=== PATIENT | female | born 1970 | race Caucasian/White ===

== ENCOUNTER 2022-06-12 10:50 | Outpatient (REF) | payer BC, SELFPAY ==
--- NOTE | ~2022-06-12 | MR_ITS ---
EXAMINATION: MR BRAIN WITHOUT AND WITH CONTRAST CLINICAL INFORMATION: Encephalopathy. COMPARISON: None available. TECHNIQUE: Multiplanar, multisequence imaging of the brain was performed before and after the intravenous administration of 7.5 mL of Gadavist. FINDINGS: There is no acute infarction, mass, hemorrhage, or extra-axial collection. No abnormal or unexpected intracranial enhancement is seen. The ventricles, sulci, and basilar cisterns are normal in size and configuration. A few minimal nonspecific foci of T2/FLAIR hyperintensity are seen within the cerebral white matter. The flow voids of the major intracranial arteries appear intact. The bones and extracranial soft tissues are within normal limits. MR/MR head/brain wo/w con IMPRESSION: No mass lesion, acute infarction, or abnormal intracranial enhancement.
== END 2022-06-12 10:51 | disposition home or self-care (01) ==
LOC: HO.MRI 10:50
PROVIDERS: Visit Provider Psychiatry & Neurology Neurology
DX: G93.40 Encephalopathy, unspecified (principal)
CPT/HCPCS: 70553; A9585

== ENCOUNTER 2022-07-05 07:16 | Outpatient (REF) | payer BC, SELFPAY ==
[2022-07-05 11:39] LABS: MANUAL DIFF FLAG NO
[2022-07-05 11:55] LABS: Basophils Percent Auto 0.6 % (0-2); Eosinophils Absolute Auto 0.1 X10*3/uL (0.0-0.4); Hematocrit 40.8 % (37.0-47.0); Hemoglobin 13.6 g/dl (12.0-16.0); Imm Gran Abs Auto 0.02 X10*3/uL (0.00-0.03); Imm Gran Pct Auto 0.3 % (0.0-0.4); Lymphocytes Absolute Auto 2.5 X10*3/uL (1.2-4.9); Lymphocytes Percent Auto 38.3 % (20-40); Mean Corpuscular HGB Conc 33.3 g/dl (31.0-35.0); Mean Corpuscular Hemoglobin 31.6 pg (27.0-33.0); Mean Corpuscular Volume 94.9 fL (80.0-98.0); Mean Platelet Volume 10.7 fL (9.4-12.3); Monocytes Absolute Auto 0.7 X10*3/uL (0.1-1.2); Monocytes Percent Auto 10.1 % (2-11); Neutrophils Absolute Auto 3.2 x10*3/uL (2.0-8.3); Neutrophils Percent Auto 48.7 % (45-73); Platelet Count 283 X10*3/uL (160-400); Red Cell Distribution Width 12.2 % (11.0-16.0); White Blood Count 6.6 X10*3/uL (4.8-10.8)
[2022-07-05 12:25] LABS: Anion Gap 13 (12-20); Blood Urea Nitrogen 15 mg/dL (9-16); Calcium 9.6 mg/dL (8.4-10.2); Carbon Dioxide 27 mmol/L (22-29); Chloride 104 mmol/L (96-108); Estimated Glomerular Filt Rate > 60; Glucose Fasting 103 mg/dL (60-99); Potassium 4.5 mmol/L (3.3-5.1); Sodium 139 mmol/L (135-145)
[2022-07-05 12:37] LABS: Folate 10.4 ng/mL (> or = 4.0); Vitamin B12 534 pg/mL (200-900)
[2022-07-05 12:39] LABS: Erythrocyte Sedimentation Rate 13 MM/HR (0-20)
[2022-07-05 12:56] LABS: HIV AB/AG Nonreactive (Nonreactive); HIV Num 1 0.05 S/CO (0.00-0.99)
[2022-07-05 12:57] LABS: Syphilis Screen Nonreactive (Nonreactive)
[2022-07-06 13:03] LABS: Lyme Abs Screen <0.90 index
[2022-07-09 14:04] LABS: Anti Nuclear Antibody Screen NEGATIVE (NEGATIVE)
[2022-07-11 17:55] LABS: IgA 325 mg/dL (47-310); IgG 933 mg/dL (600-1640); IgM 155 mg/dL (50-300)
== END 2022-07-05 07:17 | disposition home or self-care (01) ==
LOC: HO.WFDLDS 07:16
PROVIDERS: Visit Provider Psychiatry & Neurology Neurology
DX: Z11.4 Encounter for screening for human immunodeficiency virus [HIV] (principal); G93.40 Encephalopathy, unspecified
CPT/HCPCS: 36415; 80048; 82607; 82746; 82784; 85025; 85652; 86038; 86039; 86334; 86617; 86618; 86780; 87389

== ENCOUNTER 2025-02-10 11:46 | Outpatient (AMB) | payer BC, SELFPAY ==
--- NOTE | 2025-02-10 12:01 | MHC.OFFVIS ---
Intake Visit Reasons: 6m MCI Allergies amoxicillin Allergy (Unknown, Verified 02/02/25 11:13) Unknown HPI Comments Details: 54 yo woman with depression and mild cognitive impairment. She was evaluated at [facility] in 2022 and had a negative CSF test for Alzheimer disesae. She was told that her risk of Alzheimer was 7%. She is presenting with memory impairment and tremors. Her forgetfulness has increased, such as missing a previously scheduled appointment, raising concerns over potential causes. The increasing tremors began following the initiation of Contrave for weight loss. The connection between the medication and her symptoms remains uncertain, but she expresses willingness to try adjustment. She has severe sleep apnea diagnosed six months ago, indicated by night-time hypoxemia discovered in a sleep study, leading to CPAP treatment. She acknowledges potential connections between sleep apnea and cognition. Lastly, knee pain from arthritis restricts walking, impacting her efforts to manage symptoms through physical activity. 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 - Respiratory: Reports use of CPAP for sleep apnea; history of hypoxemia during sleep. - Musculoskeletal: Reports knee pain, particularly with increased walking. - General: Denies any major changes other than those discussed. Physical Exam Neuro Other: Mental Status: Alert and oriented to person, place, and time. Normal attention. Normal spontaneous speech, fluency, and comprehension. No obvious issues with mood and memory. Affect is appropriate. Cranial Nerves: CN II: Visual mitchell full to confrontation, visual acuity intact. CN III, IV, : Pupils equal, round, reactive to light and accommodation. Extraocular movements are normal. CN V: Facial sensation is normal. CN VII: Facial movements symmetrical. CN VIII: Hearing intact to bedside conversation is normal. CN IX, X: Palate elevates symmetrically. CN XI: Shoulder shrug and head turn symmetrical. CN XII: Tongue midline without atrophy or fasciculations. Motor: Bulk and tone normal in all extremities. No significant muscle weakness in arms and legs. No drift. Coordination: Bsztws-hi-lvto and bkad-ys-pyli testing normal. No dysmetria. Gait and Station: No obvious gait abnormality. No ataxia or instability. Extrapyramidal: Full facial expressions and blinking. No rigidity. Movements are appropriate with no tremor or abnormality. Speech: Normal; no dysarthria or tremor. Assessment & Plan Assessment & Plan (1) MCI (mild cognitive impairment): Comment: LP at [facility] in Feb 2023: Glu 72, Alzheimer test negative MRI brain WWO at [facility] [place] in May 2022: mild hyperintensities around 4 vent, ?alcohol induced but there is no h/o it. Mild b/l parietal cortical atrophy. Code(s): G31.84 - Mild cognitive impairment of uncertain or unknown etiology Category: Medical Plan Impression: a: MCI b: ROBERTA on CPAP c: Obesity that she is trying to treat with meds Rec: a: Walk daily b: Use CPAP machine regularly c: Bring sleep study report at next visit Coding Level of Care Code Est Pt Level 4 (51906) Diagnoses MCI (mild cognitive impairment) G31.84
--- OUTSIDE RECORDS SUMMARY | 2025-02-10 12:44 | XMS_ITS | Encounter Summary ---
Author Organization [facility] Address [address] [employer] [address] Phone Care Team Providers Care Supervisor Labor Gang Name Role Phone Princess Cooper MD Primary Care Provider + Saba Norton NP Primary Care Provider [phone] [phone] Saba Norton GAS WELDER APPRENTICE Primary Care Provider [phone] -[phone] Marybel Torres MD Primary Care Provide r Encounter Details Date Type Department Care Team (Late st Contact Info) Description 09/15/2020 Procedure Pass [facility] Cardiology Referral Images [address] [place] [address] Social History Tobacco Use Types Packs/Day Years Used Date Smoking Tobacco: Never Assessed Comments Unknown Sex and Gender Information Value Date Recorded Sex Assigned at Female 08/27/2020 11:03 AM EST Legal Sex Female 10:48 AM EST Gender Identity Female 08/27/2020 11:03 AM EST Sexual Orientation Straight 08/27/2020 11 :03 AM EST documented as of this encounter Plan of Treatment Not on file documented as of this encounter Visit Diagnoses Not on filedocumented in this encounter Care Teams Supervisor Labor Gang Relationship Specialty Start Date End Date Princess Cooper MD 24 [facility] [place] [address] PCP - General Internal Medicine 08/27/20 09/04/22 Saba Norton, JESSY [address] [place] [address] PCP - General Nurse Practitioner 09/05/22 03/05/23 Saba Norton NP [address] [place] [address] PCP - General Nurse Practitioner 03/06/23 05/20/23 Marybel Torres MD 24 [place] [address] PCP - General Internal Medicine 05/21/23 documented as of this encounter Additional Source Comments The information contained in this document represents components of the legal health record. It is not the complete legal health record.[facility]
--- OUTSIDE RECORDS SUMMARY | 2025-02-10 12:44 | XMS_ITS | Clinical Summary ---
Author Organization [facility] Address [address] [employer] [facility] [address] [place] [address] Phone Care Team Providers Care Livestock Haulier Name Role Phone Marybel Torres MD Primary Care Provide r Allergies Active Allergy Reactions Criticality Noted Date Comments Other 11/25/2020 PFO--filter IVs Medications losartan (COZAAR) 50 MG tablet Take 25 mg by mouth daily. Active buPROPion (WELLBUTRIN XL) 150 MG ER 24 hr tablet Take 150 mg by mouth every morning. Active lamoTRIgine (LAMICTAL) 100 MG tablet Take 100 mg by mouth 2 (two) times a day. Active levothyroxine (SYNTHROID, LEVOTHROID) 50 MCG tablet Take 50 mcg by mouth every morning. Active vortioxetine (TRINTELLIX) 10 mg Tab Take 20 mg by mouth daily. Active omeprazole (PRILOSEC) 20 MG capsule Take 20 mg by mouth daily. Active aspirin 81 mg chewable tablet Take 81 mg by mouth daily. Active amLODIPine (NORVASC) 5 MG tablet Take 1 tablet (5 mg total) by mouth daily. 90 tablet 3 09/21/2022 Active rosuvastatin (CRESTOR) 5 MG tablet Take 1 tablet (5 mg total) by mouth daily. 90 tablet 3 08/07/2024 Active Active Problems Problem Noted Date Diagnosed Date PFO with atrial septal aneurysm 07/18/2021 Assessment & Plan (08/17/2021 11:18 AM EST): Hx of interatrial aneurysm with likely small PFO. Initial concern for cardioembolic source of omental infarct, however, on further questioning does not sound cardiac in etiology. TTE with bubble study today did not show definitive evidence of PFO. Possible one or two bubbles in LV with strong valsalva vs chordae structure. No bubbles in LA. No records received from OSH for her ED admission. Since we last spoke, she reports feeling fleeting episodes of trouble getting her words out and gait imbalance but no falls. No weakness, loss of vision or speech, LH or near syncope. Rec referral to Neuro for further FU, offered referral at [facility] but she lives in [facility] so prefers to see someone locally. Will discuss with her PCP. Her sx are fleeting and do not sound entirely c/w TIA but could consider KEVIN with bubble to more accurately discern bubbles from normal chordae. Will again reach out to OSH for records and discuss with Dr. Singh once records are received. OSH records Neuro eval in [facility] Assessment & Plan (07/18/2021 2:54 PM EST): Hx of interatrial aneurysm with likely small PFO. Initial concern for cardioembolic source of omental infarct, however, on further questioning does not sound cardiac in etiology. Repeat TTE with bubble study today did not show definitive evidence of PFO. Possible one or two bubbles in LV with strong valsalva vs chordae structure. No bubbles in LA. Will obtain records from OSH for her ED admission. In the absence of neurologic sx or concern for cardioembolic source, unlikely to need further investigation. If there was concern for embolic infarction, could consider KEVIN with bubble to more accurately discern bubbles from normal chordae. Will review with Dr. Singh once records are received. Hypertension 11/25/2020 Assessment & Plan (08/17/2021 11:18 AM EST): Blood pressure is well controlled on current regimen. No changes today. Cont amlodipine 5 mg and losartan 50 mg. Assessment & Plan (07/18/2021 2:51 PM EST): Blood pressure is well controlled on current regimen. No changes today. Cont amlodipine 5 mg and losartan 50 mg. Social History Tobacco Use Types Packs/Day Years Used Date Smoking Tobacco: Never Smokeless Tobacco: Never Education Answer Date Recorded Are you interested in more education? Not on tasia e 10/13/2022 Are you concerned about learning? Not on file 10/13/2022 No 10/13/2022 No 10/13/2022 Digital Access Answer Date Recorded No 11/11/2022 No 11/11/2022 Reliable internet access at home? Not on file 11/11/2022 Device with a working camera? Not on file Comments Unknown Sex and Gender Information Value Date Recorded Sex Assigned at Female 08/27/2020 11:03 AM EST Legal Sex Female 10:48 AM EST Gender Identity Female 08/27/2020 11:03 AM EST Sexual Orientation Straight 08/27/2020 11 :03 AM EST Last Filed Vital Signs Vital Sign Reading Time Taken Comments Blood Pressure 132/84 03/16/2023 9:36 AM EDT Pulse 89 03/16/2023 9:36 AM EDT Temperature 37.1 C (98.7 F) 03/16/2023 9:36 AM EDT Respiratory Rate - - Oxygen Saturation 98% 03/16/2023 9:36 AM EDT Inhaled Oxygen Concentration - - Weight 76 kg (167 lb 8.8 oz) 03/16/2023 9:36 AM EDT Height 153.4 cm (5' 0.39 ) 03/16/2023 9:36 AM ED T Body Mass Index 32.3 03/16/2023 9:36 AM EDT Plan of Treatment Health Maintenance Due Date Last Done Comments DEPRESSION SCREENING 1981 HEPATITIS C SCREENING 11/22/1987 HIV ONE-TIME SCREENING (18-65 YEARS) 11/22/1987 PAP SMEAR 1990 MAMMOGRAM 2009 COLOGUARD 2014 COLONOSCOPY 2014 COLORECTAL CANCER SCREENING 2014 FIT TEST 2014 FOBT 2014 SIGMOIDOSCOPY 2014 VIRTUAL COLONOSCOPY 2014 PNEUMOCOCCAL VACCINES (50+ years) (1 of 1 - PCV) 11/22/2019 ZOSTER VACCINES (1 of 2) 11/22/2019 BLOOD PRESSURE 04/04/2023 10/03/2022 COVID-19 VACCINE ( season) 2024 05/06/2022, 05/07/2021, 08/07/2020, Additional history exists CREATININE LEVEL 04/11/2024 04/11/2023 POTASSIUM LEVEL 04/11/2024 04/11/2023 TSH LEVEL 04/11/2024 04/11/2023 LIPID PANEL 03/25/2026 03/25/2021 SCREENING FOR DIABETES 04/11/2026 04/11/2023 Adult Td,Tdap Booster 11/13/2033 11/14/2023 SMOKING STATUS SCREENING (Once After 26 Yrs) Completed 03/16/2023 HEPATITIS A VACCINES Aged Out No long er eligible based on patient's age to complete this topic HIB VACCINES Aged Out No longer eligi ble based on patient's age to complete this topic MENINGOCOCCAL VACCINES (ACWY) Aged Out No longer eligible based on patient's age to complete this topic MENINGOCOCCAL VACCINES (B) Aged Out N o longer eligible based on patient's age to complete this topic Medical Devices Not on file Procedures Procedure Name Priority Date/Time Associated Diagnosis Comments TSH WITH REFLEX Routine 04/11/2023 10:35 AM EDT Cognitive change BASIC METABOLIC PANEL Routine 04/11/2023 10:35 AM EDT Cognitive change LIPID PANEL Routine 03/25/2021 12:49 PM EDT Other hyperlipidemia from Last 3 Months or Most Recently Relevant to Health Maintenance Results * TSH with reflex (04/11/2023 10:35 AM EDT) Pathologist [facility] SCREENING PANEL: TSH 1.80 0.40 - 5.00 uIU/mL [facility] 04/11/2023 10:3 5 AM EDT 04/11/2023 11:23 AM EDT us Celestino Crow MD, PhD LAB BLOOD ORDERABLES Final Result [facility] [address] [place] [address] * Basic metabolic panel (04/11/2023 10:35 AM EDT) Pathologist [facility] SODIUM 141 135 - 145 mmol/L [facility] POTASSIUM 4.6 3.4 - 5.0 mmol/L [facility] CHLORIDE 104 98 - 108 mmol/L [facility] CO2 27 23 - 32 mmol/L [facility] BUN 14 8 - 25 mg/dL [facility] CREATININE 0.81 0.60 - 1.50 mg/dL [facility] GLUCOSE 100 70 - 110 mg/dL [facility] CALCIUM 9.6 8.5 - 10.5 mg/dL [facility] EGFR 87 >59 mL/min/1.7 3m2 [facility] Comment:Estimated glomerular filtration rate calculated using the CKD-EPI refit equation. ANION GAP 10 3 - 17 mmol/L [facility] 04/11/2023 10:3 5 AM EDT 04/11/2023 11:23 AM EDT Celestino Crow MD, PhD LAB BLOOD ORDERABLES Final Result Performing Organization Address City/State/[facility] Co de Phone Number [address] [address] * (ABNORMAL) Lipid panel (03/25/2021 12:49 PM EDT) HDL 65 mg/dL [facility] Comment: Interpretation <40 mg/dL: Low HDL cholesterol (major risk factor for CHD) Greater than or equal to 60 mg/dL: High HDL cholesterol ( negative risk factor for CHD) HDL - cholesterol is affected by a number of factors, e.g. smoking, excerise, hormones, sex and age. CHOLESTEROL 246(H) 0 - 240 mg/dL [facility] TRIGLYCERIDES 52 30 - 160 mg/dL [facility] LDL 171(H) 50 - 129 mg/dL [facility] Comment: LDL levels in terms of risk for coronary heart disease: <100 mg/dL: Optimal 100-129 mg/dL: Near or above optimal 130-159 mg/dL: Borderline high 160-189 mg/dL: High >190 mg/dL: Very High CARDIAC RISK RATIO 3.8 3.3 - 4.4 C [facility] Blood 03/25/2021 12:4 9 PM EDT 03/25/2021 12:52 PM EDT us iRta Keane MD LAB BLOOD ORDERABLES Final R esult [address] [address] from Last 3 Months or Most Recently Relevant to Health Maintenance Insurance [facility] [place] [address] [address] [place] [address] [facility] Care Teams Livestock Haulier Relationship Specialty Start Date End Date Marybel Torres MD 24 [place] [address] PCP - General Internal Medicine 05/21/23 Additional Source Comments The information contained in this document represents components of the legal health record. It is not the complete legal health record.[facility]
--- OUTSIDE RECORDS SUMMARY | 2025-02-10 12:44 | XMS_ITS | Encounter Summary ---
Author Organization [facility] Address [address] [place] [address] [place] [address] Phone Care Team Providers Care Assistant Shift Supervisor Name Role Phone Princess Cooper MD Primary Care Provider + Saba Norton CLOTH BEAMER Primary Care Provider [phone] [phone] Saba Norton CLOTH BEAMER Primary Care Provider [phone] [phone] Marybel Torres MD Primary Care Provide r Encounter Details Date Type Department Care Team (Late st Contact Info) Description 01/10/[address], [facility] Imaging - [address], [facility] [address] [id number] Social History Tobacco Use Types Packs/Day Years [...] on filedocumented in this encounter Care Teams Assistant Shift Supervisor Relationship Specialty Start Date End Date Princess Cooper MD 24 [facility] & [place] [address] PCP - General Internal Medicine 08/27/20 09/04/22 Saba Norton NP [address] [place] [address] PCP - General Nurse Practitioner 09/05/22 03/05/23 Saba Norton NP [address] [place] [address] PCP - General Nurse Practitioner 03/06/23 05/20/23 Marybel Torres MD 24 [place] [address] PCP - General Internal Medicine 05/21/23 documented as of this encounter Additional Source Comments The information contained in this document represents components of the legal health record. It is not the complete legal health record.[facility]
--- OUTSIDE RECORDS SUMMARY | 2025-02-10 12:44 | XMS_ITS | Clinical Summary ---
Author Organization [address] [place] [address] Address [address] [place] [address] Phone Care Team Providers Care Reference Investigator Name Role Phone Unavailable Primary Care Provider Unavailabl e Encounters Date Type Department Care Team Description 01/26/2025 Telephone Pulmonolgy - [place] [address] [phone] Luis Elias MD [facility] [address] [phone] Luis Elias MD 11/[facility] [address] [phone] Luis Elias MD [facility] [address] [phone] Luis Elias MD from Last 3 Months Social History Tobacco Use Types Packs/Day Years Used Date Smoking Tobacco: Never Assessed Comments Unknown Sex and Gender Information Value Date Recorded Sex Assigned at Not on file Legal Sex Female 10:15 AM EST Gender Identity Not on file Sexual Orientation Not on file Plan of Treatment Upcoming Encounters Date Type Department Care Team ([facility] st Contact Info) Description 03/17/2025 10:00 AM EDT Office Visit Pulmonolgy [facility] [address] [facility] [address] [place] [address] Luis Elias MD [address] [place] [phone] Health Maintenance Due Date Last Done Comments Breast Cancer Screening 1969 DTaP,Tdap,and Td Vaccines (1 - Tdap) 1988 Hepatitis B Vaccines (1 of 3 - 19+ 3-dose series) 1988 Cervical Cancer Screening: P ap Smear 1990 Pneumococcal Vaccine: 50+ Ye ars (1 of 1 - PCV) 11/22/2019 Zoster Vaccines (1 of 2) 11/22/2019 Colorectal Cancer Screening: Colonoscopy 05/21/2022 HIV Screening 05/21/2022 Hepatitis C Screening 05/21/2022 Social Influencers of Health Screening 05/21/2022 COVID-19 Vaccine (1 - 2023-2 5 season) 2024 Depression Screening 06/18/2024 Influenza Vaccine (#1) 2025 HIB Vaccines Aged Out No longer eligi ble based on patient's age to complete this topic HPV Vaccines Aged Out No longer eligi ble based on patient's age to complete this topic Hepatitis A Vaccines Aged Out No long er eligible based on patient's age to complete this topic IPV Vaccines Aged Out No longer eligi ble based on patient's age to complete this topic MMR Vaccines Aged Out No longer eligi ble based on patient's age to complete this topic Meningococcal ACWY Vaccine Aged Out N o longer eligible based on patient's age to complete this topic Meningococcal B Vaccine Aged Out No l onger eligible based on patient's age to complete this topic RSV Immunization Patients Un lobo 20 months Aged Out No longer eligible b ased on patient's age to complete this topic Varicella Vaccines Aged Out No longer eligible based on patient's age to complete this topic Insurance [facility]
--- OUTSIDE RECORDS SUMMARY | 2025-02-10 12:45 | XMS_ITS | Encounter Summary ---
Author Organization [facility] Address [facility] [employer] [facility] [address] [place] [address] Phone Care Team Providers Care Roundsman Name Role Phone Princess Cooper MD Primary Care Provider + Saba Norton NP Primary Care Provider [phone] [phone] Saba Norton CORPORATE STAFF ACCOUNTANT Primary Care Provider [phone] -[phone] Marybel Torres MD Primary Care Provide r Encounter Details Date Type Department Care Team (Late st Contact Info) Description 05/27/2021 Procedure Pass [facility] Cardiology [address] [facility], [address] [place] [id number] Social History Tobacco Use Types Packs/Day Years [...] on filedocumented in this encounter Care Teams Roundsman Relationship Specialty Start Date End Date Princess Cooper MD 24 [facility] [place] [address] PCP - General Internal Medicine 08/27/20 09/04/22 Saba Norton NP 24 [place] [address] PCP - General Nurse Practitioner 09/05/22 03/05/23 Saba Nortno NP [address] [place] [address] PCP - General Nurse Practitioner 03/06/23 05/20/23 Marybel Torres MD 24 [place] [address] PCP - General Internal Medicine 05/21/23 documented as of this encounter Additional Source Comments The information contained in this document represents components of the legal health record. It is not the complete legal health record.[facility]
--- OUTSIDE RECORDS SUMMARY | 2025-02-10 12:45 | XMS_ITS | Patient Health Record ---
Author Organization [facility] [address] Address [address] [place] [address] Care Team Providers Care Shank Rander Name Role Phone Marybel Torres MD Primary Care Provider ANOOP Yoder Unavailable [phone] Allergies Allergen (clinical drug ingredient) Drug/Non Drug Allergy documented on EMR Reaction Allergy Type Onset Date Status amoxicillin Amoxicillin Unknown Drug Allergy Act marguerite Reason For Referral Diagnosis 1 Abnormal weight loss (R63.4) Referred Organization [facility] [address] Referred Provider ANOOP MULLIGAN Referred Address [address] [facility] [address] ,[place], [place],[address], Referred Provider Specialty Weight Manag ement Referral Priority Routine Medications Medication SIG (Take, Route, Frequency, Duration) Notes Start Date End Date Status Contrave 8-90 MG Take 2 tablets Orall y twice daily; Duration: 30 days Active buPROPion HCl ER (SR) 100 MG Oral; Duration: 90 Days Not- Taking Rosuvastatin Calcium 5 MG Oral; Duration: 90 Days Active Omeprazole 20 MG TAKE 1 CAPSULE BY MO UTH DAILY TAKE ON AN ON AN EMPTY STOMACH AND WAIT 40 MINUTES BEFORE EATING OR DRINKING Oral; Duration: 90 Days Active Trintellix 20 MG TAKE 1 TABLET BY JESSICA TH EVERY MORNING Oral; Duration: 15 Days Active lamoTRIgine 100 MG TAKE 1 TABLET BY JESSICA TH TWICE DAILY Oral; Duration: 90 Days Active Synthroid 50 MCG TAKE 1 TABLET DAILY Oral; Duration: 90 Days Active Losartan Potassium 50 MG TAKE 1 TABLET D AILY Oral; Duration: 90 Days Active amLODIPine Besylate 5 MG TAKE 1 TABLET D AILY Oral; Duration: 90 Days Active Baby Aspirin Active Problems Problem Type SNOMED Code ICD Code Onset Dates Problem Status W/U Status Risk Notes Problem Recurrent major depression (22876564) Recurrent major depressive disorder, in remission (F33.40) Active confirmed Problem Hyperlipidaemia (27278982) Hyperlipidemia, unspecified hyperlipidemia type (E78.5) Active confirmed Problem Can's esophagus (283971219) Can's esophagus with dysplasia (K22.719) Active confirmed Problem Obese class II (699208815541741) BMI 35.0-35.9,adult (Z68.35) Active confirmed Problem Primary hypertension (39995446) Primary hypertension (I10) Active confirmed Vital Signs Heart Rate 81 /min 01/08/2025 Oximetry 99 % 01/08/2025 Blood pressure diastolic 84 mm Hg 01/08/2025 Height 59 in 01/08/2025 Blood pressure systolic 126 mm Hg 01/08/2025 Weight 174.6 lbs 01/08/2025 BMI 35.26 kg/m2 01/08/2025 Encounters Encounter Location Date Provider Diagnosis [facility] [address] [address] 06/19/2024 ANOOP ESE Obesity (BMI 30-39.9 ) E66.9 ; BMI 35.0-35.9,adult Z68.35 ; Hyperlipidemia, unspecified hyperlipidemia type E78.5 ; Primary hypertension I10 ; Recurrent major depressive disorder, in remission F33.40 ; Can's esophagus with dysplasia K22.719 and Nutritional counseling Z71.3 [facility] [address] [address] 07/25/2024 ANOOP ESE Obesity (BMI 30-39.9 ) E66.9 ; BMI 35.0-35.9,adult Z68.35 ; Hyperlipidemia, unspecified hyperlipidemia type E78.5 ; Primary hypertension I10 and Nutritional counseling Z71.3 [facility] [address] [address] 11/04/2024 ANOOP ESE Obesity (BMI 30-39.9 ) E66.9 ; BMI 34.0-34.9,adult Z68.34 ; Hyperlipidemia, unspecified hyperlipidemia type E78.5 ; Primary hypertension I10 and Nutritional counseling Z71.3 [facility] [address] [address] 12/09/2024 ANOOP ESE Obesity (BMI 30-39.9 ) E66.9 ; BMI 34.0-34.9,adult Z68.34 ; Hyperlipidemia, unspecified hyperlipidemia type E78.5 ; Primary hypertension I10 and Nutritional counseling Z71.3 [facility] [address] [address] 01/08/2025 ANOOP MULLIGAN Obesity (BMI 30-39.9 ) E66.9 ; BMI 35.0-35.9,adult Z68.35 ; Hyperlipidemia, unspecified hyperlipidemia type E78.5 ; Primary hypertension I10 and Nutritional counseling Z71.3 [facility] [address] [address] 06/19/2024 ANOOP BIANCHIHAM [facility] [address] [address] 07/25/2024 ANOOP VOLGA [facility] [address] [address] 10/01/2024 ANOOP BIANCHIHAM [facility] [address] [address] 11/04/2024 ANOOP BIANCHIHAM [facility] [address] [facility] [address] [address] 07/15/2024 ANOOP MULLIGAN [facility] [address] [address] 11/19/2024 ANOOP BIANCHIHAM Obesity (BMI 30-39.9 ) E66.9 Assessments Encounter Date Diagnosis (ICD Code) Assessment Notes Treatment Notes Treatment Clinical Notes Section Notes 06/19/2024 Obesity (BMI 30-39.9) (ICD-10 - E66.9) Heather is a 53-year-old female with a PMH of HTN, HLD, hypothyroidism, depression, Can's Esophagus, nightly oxygen requirement (2 L via nasal cannula) that presents for weight management consult. Patient was reassured and welcomed to the practice. Discussed [facility] holistic and medical approach to weight loss with emphasis on lifestyle modification. Patient is educated that a healthy lifestyle aids in combating obesity as well as reducing the risk of developing obesity-related medical complications including but not limited to diabetes and cardiovascular disease. Detailed education provided about taking steps to initiate sustainable lifestyle changes including incorporating regular physical activity, making healthy diet choices, and prioritizing mental health. Information provided about literature including The Food Rules by Sam Goldman and Eat Fat Get Lean by Dr Arnie Bennett. Handouts including lifestyle checklist, protein content of food, low calorie snacks, and cholesterol information sheet provided. Diagnostic testing/ SECA scale offered. Discussed the importance of regular SECA scale measurements to ensure healthy weight loss. 06/19/2024: Weight: 174, BMI: 35. Reviewed SECA/goals for implementing sustainable lifestyle changes. Patient is encouraged to increase physical activity, goal 8-10k steps/day. Also discussed the importance of strength training with proper safety/body mechanics for maintenance of muscle mass/bone health. Patient encouraged to drink 60-80oz water/day. Reviewed nutrition, recommending food diary x 1 week to ensure adequate caloric/protein intake. Goal of 80g protien/day. Reviewed risks, benefits, and side effects of weight management medications including phentermine, Topamax, Contrave, metformin, and GLP-1 agonist. Patient interested in GLP-1 agonist Zepbound. Denies personal/family history of medullary thyroid cancer/M EN syndrome. Rx for Zepbound 2.5 mg SC weekly sent to pharmacy. Reviewed expectations for PA process/insurance coverage. After consultation and careful review of medical history, this patient would benefit from Zepbound based off of the following criteria met: Patient is over the age of 18 with a BMI of 35. Additional comorbidities include HTN, HLD. Patient has trialed other methods of weight loss including improving diet and exercise without success. This medication is prescribed by or in consultation with a board-certified obesity and weight management physician (Dr. Yola Odonnell/Dr. David Odonnell). All questions answered to the patients' satisfaction. Patient demonstrates understanding of diagnosis and treatments discussed. Follow-up in 4 weeks, sooner should any questions/concern s arise. Case discussed with collaborating physician Shyla Odonnell who has reviewed the assessment/plan. Chart, medications, labs, and vital signs reviewed. Dictation completed with the use of [employer] voice recognition software, prone to medical misidentification s and grammatical errors. All errors are unintentional. Although the practitioner does try to identify and correct errors, some may be present. Please do not hesitate to contact the practitioner for clarification. Total time was 60 minutes spent with >50% on coordination of care and patient education. 07/25/2024 Obesity (BMI 30-39.9) (ICD-10 - E66.9) Heather is a 53-year-old female with a PMH of HTN, HLD, hypothyroidism, depression, Can's Esophagus, nightly oxygen requirement (2 L via nasal cannula) that presents for weight management follow-up. Reviewed [facility] holistic and medical approach to weight loss with emphasis on lifestyle modification. 07/25/2024: Weight: 170, BMI: 34.3. SECA reviewed. Reveals 1 pound of fat loss. Muscle mass stable. Weight circumference down 1/4in. patient is encouraged to reestablish routine in terms of her lifestyle. Discussed the importance of regular meals with adequate protein/calorie intake. Additionally discussed the importance of regular physical activity. Goal to walk daily with added strength training 2-3 times weekly. Will submit Rx for Wegovy as alternative due to side effects of Zepbound. Rx for Wegovy 0.25 mg SC weekly sent to pharmacy. 06/19/2024: Weight: 174, BMI: 35. Reviewed SECA/goals for implementing sustainable lifestyle changes. Patient is encouraged to increase physical activity, goal 8-10k steps/day. Also discussed the importance of strength training with proper safety/body mechanics for maintenance of muscle mass/bone health. Patient encouraged to drink 60-80oz water/day. Reviewed nutrition, recommending food diary x 1 week to ensure adequate caloric/protein intake. Goal of 80g protein/day. Reviewed risks, benefits, and side effects of weight management medications including phentermine, Topamax, Contrave, metformin, and GLP-1 agonist. Patient interested in GLP-1 agonist Zepbound. Denies personal/family history of medullary thyroid cancer/M EN syndrome. Rx for Zepbound 2.5 mg SC weekly sent to pharmacy. Reviewed expectations for PA process/insurance coverage. All questions answered to the patients' satisfaction. Patient demonstrates understanding of diagnosis and treatments discussed. Follow-up in 4 weeks, sooner should any questions/concern s arise. Case discussed with collaborating physician Shyla Odonnell who has reviewed the assessment/plan. Chart, medications, labs, and vital signs reviewed. Dictation completed with the use of [employer] voice recognition software, prone to medical misidentification s and grammatical errors. All errors are unintentional. Although the practitioner does try to identify and correct errors, some may be present. Please do not hesitate to contact the practitioner for clarification. Total time was 30 minutes spent with >50% on coordination of care and patient education. 07/25/2024 BMI 35.0-35.9,adult (ICD-10 - Z68.35) Heather is a 53-year-old female with a PMH of HTN, HLD, hypothyroidism, depression, Can's Esophagus, nightly oxygen requirement (2 L via nasal cannula) that presents for weight management follow-up. Reviewed [facility] holistic and medical approach to weight loss with emphasis on lifestyle modification. 07/25/2024: Weight: 170, BMI: 34.3. SECA reviewed. Reveals 1 pound of fat loss. Muscle mass stable. Weight circumference down 1/4in. patient is encouraged to reestablish routine in terms of her lifestyle. Discussed the importance of regular meals with adequate protein/calorie intake. Additionally discussed the importance of regular physical activity. Goal to walk daily with added strength training 2-3 times weekly. Will submit Rx for Wegovy as alternative due to side effects of Zepbound. Rx for Wegovy 0.25 mg SC weekly sent to pharmacy. 06/19/2024: Weight: 174, BMI: 35. Reviewed SECA/goals for implementing sustainable lifestyle changes. Patient is encouraged to increase physical activity, goal 8-10k steps/day. Also discussed the importance of strength training with proper safety/body mechanics for maintenance of muscle mass/bone health. Patient encouraged to drink 60-80oz water/day. Reviewed nutrition, recommending food diary x 1 week to ensure adequate caloric/protein intake. Goal of 80g protein/day. Reviewed risks, benefits, and side effects of weight management medications including phentermine, Topamax, Contrave, metformin, and GLP-1 agonist. Patient interested in GLP-1 agonist Zepbound. Denies personal/family history of medullary thyroid cancer/M EN syndrome. Rx for Zepbound 2.5 mg SC weekly sent to pharmacy. Reviewed expectations for PA process/insurance coverage. All questions answered to the patients' satisfaction. Patient demonstrates understanding of diagnosis and treatments discussed. Follow-up in 4 weeks, sooner should any questions/concern s arise. Case discussed with collaborating physician Shyla Odonnell who has reviewed the assessment/plan. Chart, medications, labs, and vital signs reviewed. Dictation completed with the use of [employer] voice recognition software, prone to medical misidentification s and grammatical errors. All errors are unintentional. Although the practitioner does try to identify and correct errors, some may be present. Please do not hesitate to contact the practitioner for clarification. Total time was 30 minutes spent with >50% on coordination of care and patient education. 06/19/2024 BMI 35.0-35.9,adult (ICD-10 - Z68.35) Heather is a 53-year-old female with a PMH of HTN, HLD, hypothyroidism, depression, Can's Esophagus, nightly oxygen requirement (2 L via nasal cannula) that presents for weight management consult. Patient was reassured and welcomed to the practice. Discussed [facility] holistic and medical approach to weight loss with emphasis on lifestyle modification. Patient is educated that a healthy lifestyle aids in combating obesity as well as reducing the risk of developing obesity-related medical complications including but not limited to diabetes and cardiovascular disease. Detailed education provided about taking steps to initiate sustainable lifestyle changes including incorporating regular physical activity, making healthy diet choices, and prioritizing mental health. Information provided about literature including The Food Rules by Sam Goldman and Eat Fat Get Lean by Dr Arnie Bennett. Handouts including lifestyle checklist, protein content of food, low calorie snacks, and cholesterol information sheet provided. Diagnostic testing/ SECA scale offered. Discussed the importance of regular SECA scale measurements to ensure healthy weight loss. 06/19/2024: Weight: 174, BMI: 35. Reviewed SECA/goals for implementing sustainable lifestyle changes. Patient is encouraged to increase physical activity, goal 8-10k steps/day. Also discussed the importance of strength training with proper safety/body mechanics for maintenance of muscle mass/bone health. Patient encouraged to drink 60-80oz water/day. Reviewed nutrition, recommending food diary x 1 week to ensure adequate caloric/protein intake. Goal of 80g protien/day. Reviewed risks, benefits, and side effects of weight management medications including phentermine, Topamax, Contrave, metformin, and GLP-1 agonist. Patient interested in GLP-1 agonist Zepbound. Denies personal/family history of medullary thyroid cancer/M EN syndrome. Rx for Zepbound 2.5 mg SC weekly sent to pharmacy. Reviewed expectations for PA process/insurance coverage. After consultation and careful review of medical history, this patient would benefit from Zepbound based off of the following criteria met: Patient is over the age of 17 with a BMI of 35. Additional comorbidities include HTN, HLD. Patient has trialed other methods of weight loss including improving diet and exercise without success. This medication is prescribed by or in consultation with a board-certified obesity and weight management physician (Dr. Yola Odonnell/Dr. David Odonnell). All questions answered to the patients' satisfaction. Patient demonstrates understanding of diagnosis and treatments discussed. Follow-up in 4 weeks, sooner should any questions/concern s arise. Case discussed with collaborating physician Shyla Odonnell who has reviewed the assessment/plan. Chart, medications, labs, and vital signs reviewed. Dictation completed with the use of [employer] voice recognition software, prone to medical misidentification s and grammatical errors. All errors are unintentional. Although the practitioner does try to identify and correct errors, some may be present. Please do not hesitate to contact the practitioner for clarification. Total time was 60 minutes spent with >50% on coordination of care and patient education. 11/04/2024 Obesity (BMI 30-39.9) (ICD-10 - E66.9) Heather is a 53-year-old female with a PMH of HTN, HLD, hypothyroidism, depression, Can's Esophagus, nightly oxygen requirement (2 L via nasal cannula) that presents for weight management follow-up. Reviewed [facility] holistic and medical approach to weight loss with emphasis on lifestyle modification. 11/04/2024: Weight: 173.4, BMI: 35. Patient's weight is up 3 pounds. SECA reviewed, reveals improvement in body composition with loss of fat/improvement of muscle mass. Discussed importance of continued portion control and prioritization of protein intake. Recommending setting aside 30 minutes 3 times weekly for physical activity. She is encouraged to continue hydrating adequately. Discussed alternative options for weight loss. Patient interested in Contrave. Currently taking bupropion 100 mg once a day. She will discontinue this and start Contrave 1 tablet once daily x 1 week followed by appropriate medication titration. Reviewed proper use and side effects including but not limited to worsening depression, mood change, and GI upset. Patient understands to discontinue medication if any SI/HI occur. Plan to follow-up in 1 month. 07/25/2024: Weight: 170, BMI: 34.3. SECA reviewed. Reveals 1 pound of fat loss. Muscle mass stable. Weight circumference down 1/4in. Patient is encouraged to reestablish routine in terms of her lifestyle. Discussed the importance of regular meals with adequate protein/calorie intake. Additionally discussed the importance of regular physical activity. Goal to walk daily with added strength training 2-3 times weekly. Will submit Rx for Wegovy as alternative due to side effects of Zepbound. Rx for Wegovy 0.25 mg SC weekly sent to pharmacy. 06/19/2024: Weight: 174, BMI: 35. Reviewed SECA/goals for implementing sustainable lifestyle changes. Patient is encouraged to increase physical activity, goal 8-10k steps/day. Also discussed the importance of strength training with proper safety/body mechanics for maintenance of muscle mass/bone health. Patient encouraged to drink 60-80oz water/day. Reviewed nutrition, recommending food diary x 1 week to ensure adequate caloric/protein intake. Goal of 80g protein/day. Reviewed risks, benefits, and side effects of weight management medications including phentermine, Topamax, Contrave, metformin, and GLP-1 agonist. Patient interested in GLP-1 agonist Zepbound. Denies personal/family history of medullary thyroid cancer/M EN syndrome. Rx for Zepbound 2.5 mg SC weekly sent to pharmacy. Reviewed expectations for PA process/insurance coverage. All questions answered to the patients' satisfaction. Patient demonstrates understanding of diagnosis and treatments discussed. Follow-up in 4 weeks, sooner should any questions/concern s arise. Case discussed with collaborating physician Shyla Odonnell who has reviewed the assessment/plan. Chart, medications, labs, and vital signs reviewed. Dictation completed with the use of [employer] voice recognition software, prone to medical misidentification s and grammatical errors. All errors are unintentional. Although the practitioner does try to identify and correct errors, some may be present. Please do not hesitate to contact the practitioner for clarification. Total time was 30 minutes spent with >50% on coordination of care and patient education. 11/04/2024 BMI 34.0-34.9,adult (ICD-10 - Z68.34) Heather is a 53-year-old female with a PMH of HTN, HLD, hypothyroidism, depression, Can's Esophagus, nightly oxygen requirement (2 L via nasal cannula) that presents for weight management follow-up. Reviewed [facility] holistic and medical approach to weight loss with emphasis on lifestyle modification. 11/04/2024: Weight: 173.4, BMI: 35. Patient's weight is up 3 pounds. SECA reviewed, reveals improvement in body composition with loss of fat/improvement of muscle mass. Discussed importance of continued portion control and prioritization of protein intake. Recommending setting aside 30 minutes 3 times weekly for physical activity. She is encouraged to continue hydrating adequately. Discussed alternative options for weight loss. Patient interested in Contrave. Currently taking bupropion 100 mg once a day. She will discontinue this and start Contrave 1 tablet once daily x 1 week followed by appropriate medication titration. Reviewed proper use and side effects including but not limited to worsening depression, mood change, and GI upset. Patient understands to discontinue medication if any SI/HI occur. Plan to follow-up in 1 month. 07/25/2024: Weight: 170, BMI: 34.3. SECA reviewed. Reveals 1 pound of fat loss. Muscle mass stable. Weight circumference down 1/4in. Patient is encouraged to reestablish routine in terms of her lifestyle. Discussed the importance of regular meals with adequate protein/calorie intake. Additionally discussed the importance of regular physical activity. Goal to walk daily with added strength training 2-3 times weekly. Will submit Rx for Wegovy as alternative due to side effects of Zepbound. Rx for Wegovy 0.25 mg SC weekly sent to pharmacy. 06/19/2024: Weight: 174, BMI: 35. Reviewed SECA/goals for implementing sustainable lifestyle changes. Patient is encouraged to increase physical activity, goal 8-10k steps/day. Also discussed the importance of strength training with proper safety/body mechanics for maintenance of muscle mass/bone health. Patient encouraged to drink 60-80oz water/day. Reviewed nutrition, recommending food diary x 1 week to ensure adequate caloric/protein intake. Goal of 80g protein/day. Reviewed risks, benefits, and side effects of weight management medications including phentermine, Topamax, Contrave, metformin, and GLP-1 agonist. Patient interested in GLP-1 agonist Zepbound. Denies personal/family history of medullary thyroid cancer/M EN syndrome. Rx for Zepbound 2.5 mg SC weekly sent to pharmacy. Reviewed expectations for PA process/insurance coverage. All questions answered to the patients' satisfaction. Patient demonstrates understanding of diagnosis and treatments discussed. Follow-up in 4 weeks, sooner should any questions/concern s arise. Case discussed with collaborating physician Shyla Odonnell who has reviewed the assessment/plan. Chart, medications, labs, and vital signs reviewed. Dictation completed with the use of [employer] voice recognition software, prone to medical misidentification s and grammatical errors. All errors are unintentional. Although the practitioner does try to identify and correct errors, some may be present. Please do not hesitate to contact the practitioner for clarification. Total time was 30 minutes spent with >50% on coordination of care and patient education. 11/19/2024 Obesity (BMI 30-39.9) (ICD-10 - E66.9) 12/09/2024 Obesity (BMI 30-39.9) (ICD-10 - E66.9) Heahter is a 54-year-old female with a PMH of HTN, HLD, hypothyroidism, depression, Can's Esophagus, nightly oxygen requirement (2 L via nasal cannula) that presents for weight management follow-up. Reviewed [facility] holistic and medical approach to weight loss with emphasis on lifestyle modification. 12/09/2024: Weight: 173.9, BMI: 35. Weight is stable. SECA reviewed. Patient encouraged to continue prioritizing protein intake and supplementing with high-protein snacks/drinks. She is encouraged to continue to increase physical activity as tolerated. Discussed importance of adequate hydration. Will continue Contrave -patient can titrate down if she feels that shaking persists/worsens. 11/04/2024: Weight: 173.4, BMI: 35. (+3lb) 07/25/2024: Weight: 170, BMI: 34.3. (-4lb) 06/19/2024: Weight: 174, BMI: 35. All questions answered to the patients' satisfaction. Patient demonstrates understanding of diagnosis and treatments discussed. Follow-up in 4 weeks, sooner should any questions/concern s arise. Case discussed with collaborating physician Shyla Odonnell who has reviewed the assessment/plan. Chart, medications, labs, and vital signs reviewed. Dictation completed with the use of Dragon voice recognition software, prone to medical misidentification s and grammatical errors. All errors are unintentional. Although the practitioner does try to identify and correct errors, some may be present. Please do not hesitate to contact the practitioner for clarification. Total time was 30 minutes spent with >50% on coordination of care and patient education. 01/08/2025 Obesity (BMI 30-39.9) (ICD-10 - E66.9) Heather is a 54-year-old female with a PMH of HTN, HLD, hypothyroidism, depression, Can's Esophagus, nightly oxygen requirement (2 L via nasal cannula) that presents for weight management follow-up. Reviewed [facility] holistic and medical approach to weight loss with emphasis on lifestyle modification. 01/08/2025: Weight: 174.6, BMI: 35.3. SECA reviewed, relatively stable. Patient encouraged to work on optimizing lifestyle with goal of weight loss. Discussed importance of making health-conscious diet choices, practicing portion control, and prioritizing protein intake. Also discussed importance of increasing water intake and making time for regular physical activity. Plan to continue Contrave and follow-up in 1 month. 12/09/2024: Weight: 173.9, BMI: 35. 11/04/2024: Weight: 173.4, BMI: 35. (+3lb) 07/25/2024: Weight: 170, BMI: 34.3. (-4lb) 06/19/2024: Weight: 174, BMI: 35. All questions answered to the patients' satisfaction. Patient demonstrates understanding of diagnosis and treatments discussed. Follow-up in 4 weeks, sooner should any questions/concern s arise. Case discussed with collaborating physician Shyla Odonnell who has reviewed the assessment/plan. Chart, medications, labs, and vital signs reviewed. Dictation completed with the use of [employer] voice recognition software, prone to medical misidentification s and grammatical errors. All errors are unintentional. Although the practitioner does try to identify and correct errors, some may be present. Please do not hesitate to contact the practitioner for clarification. Total time was 30 minutes spent with >50% on coordination of care and patient education. 01/08/2025 BMI 35.0-35.9,adult (ICD-10 - Z68.35) Heather is a 54-year-old female with a PMH of HTN, HLD, hypothyroidism, depression, Can's Esophagus, nightly oxygen requirement (2 L via nasal cannula) that presents for weight management follow-up. Reviewed [facility] holistic and medical approach to weight loss with emphasis on lifestyle modification. 01/08/2025: Weight: 174.6, BMI: 35.3. SECA reviewed, relatively stable. Patient encouraged to work on optimizing lifestyle with goal of weight loss. Discussed importance of making health-conscious diet choices, practicing portion control, and prioritizing protein intake. Also discussed importance of increasing water intake and making time for regular physical activity. Plan to continue Contrave and follow-up in 1 month. 12/09/2024: Weight: 173.9, BMI: 35. 11/04/2024: Weight: 173.4, BMI: 35. (+3lb) 07/25/2024: Weight: 170, BMI: 34.3. (-4lb) 06/19/2024: Weight: 174, BMI: 35. All questions answered to the patients' satisfaction. Patient demonstrates understanding of diagnosis and treatments discussed. Follow-up in 4 weeks, sooner should any questions/concern s arise. Case discussed with collaborating physician Shyla Odonnell who has reviewed the assessment/plan. Chart, medications, labs, and vital signs reviewed. Dictation completed with the use of [employer] voice recognition software, prone to medical misidentification s and grammatical errors. All errors are unintentional. Although the practitioner does try to identify and correct errors, some may be present. Please do not hesitate to contact the practitioner for clarification. Total time was 30 minutes spent with >50% on coordination of care and patient education. 12/09/2024 BMI 34.0-34.9,adult (ICD-10 - Z68.34) Heather is a 54-year-old female with a PMH of HTN, HLD, hypothyroidism, depression, Can's Esophagus, nightly oxygen requirement (2 L via nasal cannula) that presents for weight management follow-up. Reviewed [facility] holistic and medical approach to weight loss with emphasis on lifestyle modification. 12/09/2024: Weight: 173.9, BMI: 35. Weight is stable. SECA reviewed. Patient encouraged to continue prioritizing protein intake and supplementing with high-protein snacks/drinks. She is encouraged to continue to increase physical activity as tolerated. Discussed importance of adequate hydration. Will continue Contrave -patient can titrate down if she feels that shaking persists/worsens. 11/04/2024: Weight: 173.4, BMI: 35. (+3lb) 07/25/2024: Weight: 170, BMI: 34.3. (-4lb) 06/19/2024: Weight: 174, BMI: 35. All questions answered to the patients' satisfaction. Patient demonstrates understanding of diagnosis and treatments discussed. Follow-up in 4 weeks, sooner should any questions/concern s arise. Case discussed with collaborating physician Shyla Odonnell who has reviewed the assessment/plan. Chart, medications, labs, and vital signs reviewed. Dictation completed with the use of [employer] voice recognition software, prone to medical misidentification s and grammatical errors. All errors are unintentional. Although the practitioner does try to identify and correct errors, some may be present. Please do not hesitate to contact the practitioner for clarification. Total time was 30 minutes spent with >50% on coordination of care and patient education. 01/08/2025 Hyperlipidemia, unspecified hyperlipidemia type (ICD-10 - E78.5) Heather is a 54-year-old female with a PMH of HTN, HLD, hypothyroidism, depression, Can's Esophagus, nightly oxygen requirement (2 L via nasal cannula) that presents for weight management follow-up. Reviewed [facility] holistic and medical approach to weight loss with emphasis on lifestyle modification. 01/08/2025: Weight: 174.6, BMI: 35.3. SECA reviewed, relatively stable. Patient encouraged to work on optimizing lifestyle with goal of weight loss. Discussed importance of making health-conscious diet choices, practicing portion control, and prioritizing protein intake. Also discussed importance of increasing water intake and making time for regular physical activity. Plan to continue Contrave and follow-up in 1 month. 12/09/2024: Weight: 173.9, BMI: 35. 11/04/2024: Weight: 173.4, BMI: 35. (+3lb) 07/25/2024: Weight: 170, BMI: 34.3. (-4lb) 06/19/2024: Weight: 174, BMI: 35. All questions answered to the patients' satisfaction. Patient demonstrates understanding of diagnosis and treatments discussed. Follow-up in 4 weeks, sooner should any questions/concern s arise. Case discussed with collaborating physician Shyla Odonnell who has reviewed the assessment/plan. Chart, medications, labs, and vital signs reviewed. Dictation completed with the use of [employer] voice recognition software, prone to medical misidentification s and grammatical errors. All errors are unintentional. Although the practitioner does try to identify and correct errors, some may be present. Please do not hesitate to contact the practitioner for clarification. Total time was 30 minutes spent with >50% on coordination of care and patient education. 07/25/2024 Hyperlipidemia, unspecified hyperlipidemia type (ICD-10 - E78.5) Heather is a 53-year-old female with a PMH of HTN, HLD, hypothyroidism, depression, Can's Esophagus, nightly oxygen requirement (2 L via nasal cannula) that presents for weight management follow-up. Reviewed [facility] holistic and medical approach to weight loss with emphasis on lifestyle modification. 07/25/2024: Weight: 170, BMI: 34.3. SECA reviewed. Reveals 1 pound of fat loss. Muscle mass stable. Weight circumference down 1/4in. patient is encouraged to reestablish routine in terms of her lifestyle. Discussed the importance of regular meals with adequate protein/calorie intake. Additionally discussed the importance of regular physical activity. Goal to walk daily with added strength training 2-3 times weekly. Will submit Rx for Wegovy as alternative due to side effects of Zepbound. Rx for Wegovy 0.25 mg SC weekly sent to pharmacy. 06/19/2024: Weight: 174, BMI: 35. Reviewed SECA/goals for implementing sustainable lifestyle changes. Patient is encouraged to increase physical activity, goal 8-10k steps/day. Also discussed the importance of strength training with proper safety/body mechanics for maintenance of muscle mass/bone health. Patient encouraged to drink 60-80oz water/day. Reviewed nutrition, recommending food diary x 1 week to ensure adequate caloric/protein intake. Goal of 80g protein/day. Reviewed risks, benefits, and side effects of weight management medications including phentermine, Topamax, Contrave, metformin, and GLP-1 agonist. Patient interested in GLP-1 agonist Zepbound. Denies personal/family history of medullary thyroid cancer/M EN syndrome. Rx for Zepbound 2.5 mg SC weekly sent to pharmacy. Reviewed expectations for PA process/insurance coverage. All questions answered to the patients' satisfaction. Patient demonstrates understanding of diagnosis and treatments discussed. Follow-up in 4 weeks, sooner should any questions/concern s arise. Case discussed with collaborating physician Shyla Odonnell who has reviewed the assessment/plan. Chart, medications, labs, and vital signs reviewed. Dictation completed with the use of [employer] voice recognition software, prone to medical misidentification s and grammatical errors. All errors are unintentional. Although the practitioner does try to identify and correct errors, some may be present. Please do not hesitate to contact the practitioner for clarification. Total time was 30 minutes spent with >50% on coordination of care and patient education. 11/04/2024 Hyperlipidemia, unspecified hyperlipidemia type (ICD-10 - E78.5) Heather is a 53-year-old female with a PMH of HTN, HLD, hypothyroidism, depression, Can's Esophagus, nightly oxygen requirement (2 L via nasal cannula) that presents for weight management follow-up. Reviewed [facility] holistic and medical approach to weight loss with emphasis on lifestyle modification. 11/04/2024: Weight: 173.4, BMI: 35. Patient's weight is up 3 pounds. SECA reviewed, reveals improvement in body composition with loss of fat/improvement of muscle mass. Discussed importance of continued portion control and prioritization of protein intake. Recommending setting aside 30 minutes 3 times weekly for physical activity. She is encouraged to continue hydrating adequately. Discussed alternative options for weight loss. Patient interested in Contrave. Currently taking bupropion 100 mg once a day. She will discontinue this and start Contrave 1 tablet once daily x 1 week followed by appropriate medication titration. Reviewed proper use and side effects including but not limited to worsening depression, mood change, and GI upset. Patient understands to discontinue medication if any SI/HI occur. Plan to follow-up in 1 month. 07/25/2024: Weight: 170, BMI: 34.3. SECA reviewed. Reveals 1 pound of fat loss. Muscle mass stable. Weight circumference down 1/4in. Patient is encouraged to reestablish routine in terms of her lifestyle. Discussed the importance of regular meals with adequate protein/calorie intake. Additionally discussed the importance of regular physical activity. Goal to walk daily with added strength training 2-3 times weekly. Will submit Rx for Wegovy as alternative due to side effects of Zepbound. Rx for Wegovy 0.25 mg SC weekly sent to pharmacy. 06/19/2024: Weight: 174, BMI: 35. Reviewed SECA/goals for implementing sustainable lifestyle changes. Patient is encouraged to increase physical activity, goal 8-10k steps/day. Also discussed the importance of strength training with proper safety/body mechanics for maintenance of muscle mass/bone health. Patient encouraged to drink 60-80oz water/day. Reviewed nutrition, recommending food diary x 1 week to ensure adequate caloric/protein intake. Goal of 80g protein/day. Reviewed risks, benefits, and side effects of weight management medications including phentermine, Topamax, Contrave, metformin, and GLP-1 agonist. Patient interested in GLP-1 agonist Zepbound. Denies personal/family history of medullary thyroid cancer/M EN syndrome. Rx for Zepbound 2.5 mg SC weekly sent to pharmacy. Reviewed expectations for PA process/insurance coverage. All questions answered to the patients' satisfaction. Patient demonstrates understanding of diagnosis and treatments discussed. Follow-up in 4 weeks, sooner should any questions/concern s arise. Case discussed with collaborating physician Shyla Odonnell who has reviewed the assessment/plan. Chart, medications, labs, and vital signs reviewed. Dictation completed with the use of [employer] voice recognition software, prone to medical misidentification s and grammatical errors. All errors are unintentional. Although the practitioner does try to identify and correct errors, some may be present. Please do not hesitate to contact the practitioner for clarification. Total time was 30 minutes spent with >50% on coordination of care and patient education. 06/19/2024 Hyperlipidemia, unspecified hyperlipidemia type (ICD-10 - E78.5) Heather is a 53-year-old female with a PMH of HTN, HLD, hypothyroidism, depression, Can's Esophagus, nightly oxygen requirement (2 L via nasal cannula) that presents for weight management consult. Patient was reassured and welcomed to the practice. Discussed [facility] holistic and medical approach to weight loss with emphasis on lifestyle modification. Patient is educated that a healthy lifestyle aids in combating obesity as well as reducing the risk of developing obesity-related medical complications including but not limited to diabetes and cardiovascular disease. Detailed education provided about taking steps to initiate sustainable lifestyle changes including incorporating regular physical activity, making healthy diet choices, and prioritizing mental health. Information provided about literature including The Food Rules by Sam Goldman and Eat Fat Get Lean by Dr Arnie Bennett. Handouts including lifestyle checklist, protein content of food, low calorie snacks, and cholesterol information sheet provided. Diagnostic testing/ SECA scale offered. Discussed the importance of regular SECA scale measurements to ensure healthy weight loss. 06/19/2024: Weight: 174, BMI: 35. Reviewed SECA/goals for implementing sustainable lifestyle changes. Patient is encouraged to increase physical activity, goal 8-10k steps/day. Also discussed the importance of strength training with proper safety/body mechanics for maintenance of muscle mass/bone health. Patient encouraged to drink 60-80oz water/day. Reviewed nutrition, recommending food diary x 1 week to ensure adequate caloric/protein intake. Goal of 80g protien/day. Reviewed risks, benefits, and side effects of weight management medications including phentermine, Topamax, Contrave, metformin, and GLP-1 agonist. Patient interested in GLP-1 agonist Zepbound. Denies personal/family history of medullary thyroid cancer/M EN syndrome. Rx for Zepbound 2.5 mg SC weekly sent to pharmacy. Reviewed expectations for PA process/insurance coverage. After consultation and careful review of medical history, this patient would benefit from Zepbound based off of the following criteria met: Patient is over the age of 18 with a BMI of 35. Additional comorbidities include HTN, HLD. Patient has trialed other methods of weight loss including improving diet and exercise without success. This medication is prescribed by or in consultation with a board-certified obesity and weight management physician (Dr. Yola Odonnell/Dr. David Odonnell). All questions answered to the patients' satisfaction. Patient demonstrates understanding of diagnosis and treatments discussed. Follow-up in 4 weeks, sooner should any questions/concern s arise. Case discussed with collaborating physician Shyla Odonnell who has reviewed the assessment/plan. Chart, medications, labs, and vital signs reviewed. Dictation completed with the use of [employer] voice recognition software, prone to medical misidentification s and grammatical errors. All errors are unintentional. Although the practitioner does try to identify and correct errors, some may be present. Please do not hesitate to contact the practitioner for clarification. Total time was 60 minutes spent with >50% on coordination of care and patient education. 07/25/2024 Primary hypertension (ICD-10 - I10) Heather is a 53-year-old female with a PMH of HTN, HLD, hypothyroidism, depression, Can's Esophagus, nightly oxygen requirement (2 L via nasal cannula) that presents for weight management follow-up. Reviewed [facility] holistic and medical approach to weight loss with emphasis on lifestyle modification. 07/25/2024: Weight: 170, BMI: 34.3. SECA reviewed. Reveals 1 pound of fat loss. Muscle mass stable. Weight circumference down 1/4in. patient is encouraged to reestablish routine in terms of her lifestyle. Discussed the importance of regular meals with adequate protein/calorie intake. Additionally discussed the importance of regular physical activity. Goal to walk daily with added strength training 2-3 times weekly. Will submit Rx for Wegovy as alternative due to side effects of Zepbound. Rx for Wegovy 0.25 mg SC weekly sent to pharmacy. 06/19/2024: Weight: 174, BMI: 35. Reviewed SECA/goals for implementing sustainable lifestyle changes. Patient is encouraged to increase physical activity, goal 8-10k steps/day. Also discussed the importance of strength training with proper safety/body mechanics for maintenance of muscle mass/bone health. Patient encouraged to drink 60-80oz water/day. Reviewed nutrition, recommending food diary x 1 week to ensure adequate caloric/protein intake. Goal of 80g protein/day. Reviewed risks, benefits, and side effects of weight management medications including phentermine, Topamax, Contrave, metformin, and GLP-1 agonist. Patient interested in GLP-1 agonist Zepbound. Denies personal/family history of medullary thyroid cancer/M EN syndrome. Rx for Zepbound 2.5 mg SC weekly sent to pharmacy. Reviewed expectations for PA process/insurance coverage. All questions answered to the patients' satisfaction. Patient demonstrates understanding of diagnosis and treatments discussed. Follow-up in 4 weeks, sooner should any questions/concern s arise. Case discussed with collaborating physician Shyla Odonnell who has reviewed the assessment/plan. Chart, medications, labs, and vital signs reviewed. Dictation completed with the use of [employer] voice recognition software, prone to medical misidentification s and grammatical errors. All errors are unintentional. Although the practitioner does try to identify and correct errors, some may be present. Please do not hesitate to contact the practitioner for clarification. Total time was 30 minutes spent with >50% on coordination of care and patient education. 06/19/2024 Primary hypertension (ICD-10 - I10) Heather is a 53-year-old female with a PMH of HTN, HLD, hypothyroidism, depression, Can's Esophagus, nightly oxygen requirement (2 L via nasal cannula) that presents for weight management consult. Patient was reassured and welcomed to the practice. Discussed [facility] holistic and medical approach to weight loss with emphasis on lifestyle modification. Patient is educated that a healthy lifestyle aids in combating obesity as well as reducing the risk of developing obesity-related medical complications including but not limited to diabetes and cardiovascular disease. Detailed education provided about taking steps to initiate sustainable lifestyle changes including incorporating regular physical activity, making healthy diet choices, and prioritizing mental health. Information provided about literature including The Food Rules by Sam Goldman and Eat Fat Get Lean by Dr Arnie Bennett. Handouts including lifestyle checklist, protein content of food, low calorie snacks, and cholesterol information sheet provided. Diagnostic testing/ SECA scale offered. Discussed the importance of regular SECA scale measurements to ensure healthy weight loss. 06/19/2024: Weight: 174, BMI: 35. Reviewed SECA/goals for implementing sustainable lifestyle changes. Patient is encouraged to increase physical activity, goal 8-10k steps/day. Also discussed the importance of strength training with proper safety/body mechanics for maintenance of muscle mass/bone health. Patient encouraged to drink 60-80oz water/day. Reviewed nutrition, recommending food diary x 1 week to ensure adequate caloric/protein intake. Goal of 80g protien/day. Reviewed risks, benefits, and side effects of weight management medications including phentermine, Topamax, Contrave, metformin, and GLP-1 agonist. Patient interested in GLP-1 agonist Zepbound. Denies personal/family history of medullary thyroid cancer/M EN syndrome. Rx for Zepbound 2.5 mg SC weekly sent to pharmacy. Reviewed expectations for PA process/insurance coverage. After consultation and careful review of medical history, this patient would benefit from Zepbound based off of the following criteria met: Patient is over the age of 17 with a BMI of 35. Additional comorbidities include HTN, HLD. Patient has trialed other methods of weight loss including improving diet and exercise without success. This medication is prescribed by or in consultation with a board-certified obesity and weight management physician (Dr. Yola Odonnell/Dr. David Odonnell). All questions answered to the patients' satisfaction. Patient demonstrates understanding of diagnosis and treatments discussed. Follow-up in 4 weeks, sooner should any questions/concern s arise. Case discussed with collaborating physician Shyla Odonnell who has reviewed the assessment/plan. Chart, medications, labs, and vital signs reviewed. Dictation completed with the use of [employer] voice recognition software, prone to medical misidentification s and grammatical errors. All errors are unintentional. Although the practitioner does try to identify and correct errors, some may be present. Please do not hesitate to contact the practitioner for clarification. Total time was 60 minutes spent with >50% on coordination of care and patient education. 11/04/2024 Primary hypertension (ICD-10 - I10) Heather is a 53-year-old female with a PMH of HTN, HLD, hypothyroidism, depression, Can's Esophagus, nightly oxygen requirement (2 L via nasal cannula) that presents for weight management follow-up. Reviewed [facility] holistic and medical approach to weight loss with emphasis on lifestyle modification. 11/04/2024: Weight: 173.4, BMI: 35. Patient's weight is up 3 pounds. SECA reviewed, reveals improvement in body composition with loss of fat/improvement of muscle mass. Discussed importance of continued portion control and prioritization of protein intake. Recommending setting aside 30 minutes 3 times weekly for physical activity. She is encouraged to continue hydrating adequately. Discussed alternative options for weight loss. Patient interested in Contrave. Currently taking bupropion 100 mg once a day. She will discontinue this and start Contrave 1 tablet once daily x 1 week followed by appropriate medication titration. Reviewed proper use and side effects including but not limited to worsening depression, mood change, and GI upset. Patient understands to discontinue medication if any SI/HI occur. Plan to follow-up in 1 month. 07/25/2024: Weight: 170, BMI: 34.3. SECA reviewed. Reveals 1 pound of fat loss. Muscle mass stable. Weight circumference down 1/4in. Patient is encouraged to reestablish routine in terms of her lifestyle. Discussed the importance of regular meals with adequate protein/calorie intake. Additionally discussed the importance of regular physical activity. Goal to walk daily with added strength training 2-3 times weekly. Will submit Rx for Wegovy as alternative due to side effects of Zepbound. Rx for Wegovy 0.25 mg SC weekly sent to pharmacy. 06/19/2024: Weight: 174, BMI: 35. Reviewed SECA/goals for implementing sustainable lifestyle changes. Patient is encouraged to increase physical activity, goal 8-10k steps/day. Also discussed the importance of strength training with proper safety/body mechanics for maintenance of muscle mass/bone health. Patient encouraged to drink 60-80oz water/day. Reviewed nutrition, recommending food diary x 1 week to ensure adequate caloric/protein intake. Goal of 80g protein/day. Reviewed risks, benefits, and side effects of weight management medications including phentermine, Topamax, Contrave, metformin, and GLP-1 agonist. Patient interested in GLP-1 agonist Zepbound. Denies personal/family history of medullary thyroid cancer/M EN syndrome. Rx for Zepbound 2.5 mg SC weekly sent to pharmacy. Reviewed expectations for PA process/insurance coverage. All questions answered to the patients' satisfaction. Patient demonstrates understanding of diagnosis and treatments discussed. Follow-up in 4 weeks, sooner should any questions/concern s arise. Case discussed with collaborating physician Shyla Odonnell who has reviewed the assessment/plan. Chart, medications, labs, and vital signs reviewed. Dictation completed with the use of [employer] voice recognition software, prone to medical misidentification s and grammatical errors. All errors are unintentional. Although the practitioner does try to identify and correct errors, some may be present. Please do not hesitate to contact the practitioner for clarification. Total time was 30 minutes spent with >50% on coordination of care and patient education. 01/08/2025 Primary hypertension (ICD-10 - I10) Heather is a 54-year-old female with a PMH of HTN, HLD, hypothyroidism, depression, Can's Esophagus, nightly oxygen requirement (2 L via nasal cannula) that presents for weight management follow-up. Reviewed [facility] holistic and medical approach to weight loss with emphasis on lifestyle modification. 01/08/2025: Weight: 174.6, BMI: 35.3. SECA reviewed, relatively stable. Patient encouraged to work on optimizing lifestyle with goal of weight loss. Discussed importance of making health-conscious diet choices, practicing portion control, and prioritizing protein intake. Also discussed importance of increasing water intake and making time for regular physical activity. Plan to continue Contrave and follow-up in 1 month. 12/09/2024: Weight: 173.9, BMI: 35. 11/04/2024: Weight: 173.4, BMI: 35. (+3lb) 07/25/2024: Weight: 170, BMI: 34.3. (-4lb) 06/19/2024: Weight: 174, BMI: 35. All questions answered to the patients' satisfaction. Patient demonstrates understanding of diagnosis and treatments discussed. Follow-up in 4 weeks, sooner should any questions/concern s arise. Case discussed with collaborating physician Shyla Odonnell who has reviewed the assessment/plan. Chart, medications, labs, and vital signs reviewed. Dictation completed with the use of [employer] voice recognition software, prone to medical misidentification s and grammatical errors. All errors are unintentional. Although the practitioner does try to identify and correct errors, some may be present. Please do not hesitate to contact the practitioner for clarification. Total time was 30 minutes spent with >50% on coordination of care and patient education. 12/09/2024 Hyperlipidemia, unspecified hyperlipidemia type (ICD-10 - E78.5) Heather is a 54-year-old female with a PMH of HTN, HLD, hypothyroidism, depression, Can's Esophagus, nightly oxygen requirement (2 L via nasal cannula) that presents for weight management follow-up. Reviewed [facility] holistic and medical approach to weight loss with emphasis on lifestyle modification. 12/09/2024: Weight: 173.9, BMI: 35. Weight is stable. SECA reviewed. Patient encouraged to continue prioritizing protein intake and supplementing with high-protein snacks/drinks. She is encouraged to continue to increase physical activity as tolerated. Discussed importance of adequate hydration. Will continue Contrave -patient can titrate down if she feels that shaking persists/worsens. 11/04/2024: Weight: 173.4, BMI: 35. (+3lb) 07/25/2024: Weight: 170, BMI: 34.3. (-4lb) 06/19/2024: Weight: 174, BMI: 35. All questions answered to the patients' satisfaction. Patient demonstrates understanding of diagnosis and treatments discussed. Follow-up in 4 weeks, sooner should any questions/concern s arise. Case discussed with collaborating physician Shyla Odonnell who has reviewed the assessment/plan. Chart, medications, labs, and vital signs reviewed. Dictation completed with the use of [employer] voice recognition software, prone to medical misidentification s and grammatical errors. All errors are unintentional. Although the practitioner does try to identify and correct errors, some may be present. Please do not hesitate to contact the practitioner for clarification. Total time was 30 minutes spent with >50% on coordination of care and patient education. 12/09/2024 Primary hypertension (ICD-10 - I10) Heather is a 54-year-old female with a PMH of HTN, HLD, hypothyroidism, depression, Can's Esophagus, nightly oxygen requirement (2 L via nasal cannula) that presents for weight management follow-up. Reviewed [facility] holistic and medical approach to weight loss with emphasis on lifestyle modification. 12/09/2024: Weight: 173.9, BMI: 35. Weight is stable. SECA reviewed. Patient encouraged to continue prioritizing protein intake and supplementing with high-protein snacks/drinks. She is encouraged to continue to increase physical activity as tolerated. Discussed importance of adequate hydration. Will continue Contrave -patient can titrate down if she feels that shaking persists/worsens. 11/04/2024: Weight: 173.4, BMI: 35. (+3lb) 07/25/2024: Weight: 170, BMI: 34.3. (-4lb) 06/19/2024: Weight: 174, BMI: 35. All questions answered to the patients' satisfaction. Patient demonstrates understanding of diagnosis and treatments discussed. Follow-up in 4 weeks, sooner should any questions/concern s arise. Case discussed with collaborating physician Shyla Odonnell who has reviewed the assessment/plan. Chart, medications, labs, and vital signs reviewed. Dictation completed with the use of [employer] voice recognition software, prone to medical misidentification s and grammatical errors. All errors are unintentional. Although the practitioner does try to identify and correct errors, some may be present. Please do not hesitate to contact the practitioner for clarification. Total time was 30 minutes spent with >50% on coordination of care and patient education. 01/08/2025 Nutritional counseling (ICD-10 - Z71.3) Heather is a 54-year-old female with a PMH of HTN, HLD, hypothyroidism, depression, Can's Esophagus, nightly oxygen requirement (2 L via nasal cannula) that presents for weight management follow-up. Reviewed [facility] holistic and medical approach to weight loss with emphasis on lifestyle modification. 01/08/2025: Weight: 174.6, BMI: 35.3. SECA reviewed, relatively stable. Patient encouraged to work on optimizing lifestyle with goal of weight loss. Discussed importance of making health-conscious diet choices, practicing portion control, and prioritizing protein intake. Also discussed importance of increasing water intake and making time for regular physical activity. Plan to continue Contrave and follow-up in 1 month. 12/09/2024: Weight: 173.9, BMI: 35. 11/04/2024: Weight: 173.4, BMI: 35. (+3lb) 07/25/2024: Weight: 170, BMI: 34.3. (-4lb) 06/19/2024: Weight: 174, BMI: 35. All questions answered to the patients' satisfaction. Patient demonstrates understanding of diagnosis and treatments discussed. Follow-up in 4 weeks, sooner should any questions/concern s arise. Case discussed with collaborating physician Shyla Odonnell who has reviewed the assessment/plan. Chart, medications, labs, and vital signs reviewed. Dictation completed with the use of [employer] voice recognition software, prone to medical misidentification s and grammatical errors. All errors are unintentional. Although the practitioner does try to identify and correct errors, some may be present. Please do not hesitate to contact the practitioner for clarification. Total time was 30 minutes spent with >50% on coordination of care and patient education. 11/04/2024 Nutritional counseling (ICD-10 - Z71.3) Heather is a 53-year-old female with a PMH of HTN, HLD, hypothyroidism, depression, Can's Esophagus, nightly oxygen requirement (2 L via nasal cannula) that presents for weight management follow-up. Reviewed [facility] holistic and medical approach to weight loss with emphasis on lifestyle modification. 11/04/2024: Weight: 173.4, BMI: 35. Patient's weight is up 3 pounds. SECA reviewed, reveals improvement in body composition with loss of fat/improvement of muscle mass. Discussed importance of continued portion control and prioritization of protein intake. Recommending setting aside 30 minutes 3 times weekly for physical activity. She is encouraged to continue hydrating adequately. Discussed alternative options for weight loss. Patient interested in Contrave. Currently taking bupropion 100 mg once a day. She will discontinue this and start Contrave 1 tablet once daily x 1 week followed by appropriate medication titration. Reviewed proper use and side effects including but not limited to worsening depression, mood change, and GI upset. Patient understands to discontinue medication if any SI/HI occur. Plan to follow-up in 1 month. 07/25/2024: Weight: 170, BMI: 34.3. SECA reviewed. Reveals 1 pound of fat loss. Muscle mass stable. Weight circumference down 1/4in. Patient is encouraged to reestablish routine in terms of her lifestyle. Discussed the importance of regular meals with adequate protein/calorie intake. Additionally discussed the importance of regular physical activity. Goal to walk daily with added strength training 2-3 times weekly. Will submit Rx for Wegovy as alternative due to side effects of Zepbound. Rx for Wegovy 0.25 mg SC weekly sent to pharmacy. 06/19/2024: Weight: 174, BMI: 35. Reviewed SECA/goals for implementing sustainable lifestyle changes. Patient is encouraged to increase physical activity, goal 8-10k steps/day. Also discussed the importance of strength training with proper safety/body mechanics for maintenance of muscle mass/bone health. Patient encouraged to drink 60-80oz water/day. Reviewed nutrition, recommending food diary x 1 week to ensure adequate caloric/protein intake. Goal of 80g protein/day. Reviewed risks, benefits, and side effects of weight management medications including phentermine, Topamax, Contrave, metformin, and GLP-1 agonist. Patient interested in GLP-1 agonist Zepbound. Denies personal/family history of medullary thyroid cancer/M EN syndrome. Rx for Zepbound 2.5 mg SC weekly sent to pharmacy. Reviewed expectations for PA process/insurance coverage. All questions answered to the patients' satisfaction. Patient demonstrates understanding of diagnosis and treatments discussed. Follow-up in 4 weeks, sooner should any questions/concern s arise. Case discussed with collaborating physician Shyla Odonnell who has reviewed the assessment/plan. Chart, medications, labs, and vital signs reviewed. Dictation completed with the use of [employer] voice recognition software, prone to medical misidentification s and grammatical errors. All errors are unintentional. Although the practitioner does try to identify and correct errors, some may be present. Please do not hesitate to contact the practitioner for clarification. Total time was 30 minutes spent with >50% on coordination of care and patient education. 07/25/2024 Nutritional counseling (ICD-10 - Z71.3) Heather is a 53-year-old female with a PMH of HTN, HLD, hypothyroidism, depression, Can's Esophagus, nightly oxygen requirement (2 L via nasal cannula) that presents for weight management follow-up. Reviewed [facility] holistic and medical approach to weight loss with emphasis on lifestyle modification. 07/25/2024: Weight: 170, BMI: 34.3. SECA reviewed. Reveals 1 pound of fat loss. Muscle mass stable. Weight circumference down 1/4in. patient is encouraged to reestablish routine in terms of her lifestyle. Discussed the importance of regular meals with adequate protein/calorie intake. Additionally discussed the importance of regular physical activity. Goal to walk daily with added strength training 2-3 times weekly. Will submit Rx for Wegovy as alternative due to side effects of Zepbound. Rx for Wegovy 0.25 mg SC weekly sent to pharmacy. 06/19/2024: Weight: 174, BMI: 35. Reviewed SECA/goals for implementing sustainable lifestyle changes. Patient is encouraged to increase physical activity, goal 8-10k steps/day. Also discussed the importance of strength training with proper safety/body mechanics for maintenance of muscle mass/bone health. Patient encouraged to drink 60-80oz water/day. Reviewed nutrition, recommending food diary x 1 week to ensure adequate caloric/protein intake. Goal of 80g protein/day. Reviewed risks, benefits, and side effects of weight management medications including phentermine, Topamax, Contrave, metformin, and GLP-1 agonist. Patient interested in GLP-1 agonist Zepbound. Denies personal/family history of medullary thyroid cancer/M EN syndrome. Rx for Zepbound 2.5 mg SC weekly sent to pharmacy. Reviewed expectations for PA process/insurance coverage. All questions answered to the patients' satisfaction. Patient demonstrates understanding of diagnosis and treatments discussed. Follow-up in 4 weeks, sooner should any questions/concern s arise. Case discussed with collaborating physician Shyla Odonnell who has reviewed the assessment/plan. Chart, medications, labs, and vital signs reviewed. Dictation completed with the use of [employer] voice recognition software, prone to medical misidentification s and grammatical errors. All errors are unintentional. Although the practitioner does try to identify and correct errors, some may be present. Please do not hesitate to contact the practitioner for clarification. Total time was 30 minutes spent with >50% on coordination of care and patient education. 06/19/2024 Recurrent major depressive disorder, in remission (ICD-10 - F33.40) Heather is a 53-year-old female with a PMH of HTN, HLD, hypothyroidism, depression, Can's Esophagus, nightly oxygen requirement (2 L via nasal cannula) that presents for weight management consult. Patient was reassured and welcomed to the practice. Discussed [facility] holistic and medical approach to weight loss with emphasis on lifestyle modification. Patient is educated that a healthy lifestyle aids in combating obesity as well as reducing the risk of developing obesity-related medical complications including but not limited to diabetes and cardiovascular disease. Detailed education provided about taking steps to initiate sustainable lifestyle changes including incorporating regular physical activity, making healthy diet choices, and prioritizing mental health. Information provided about literature including The Food Rules by Sam Goldman and Eat Fat Get Lean by Dr Arnie Bennett. Handouts including lifestyle checklist, protein content of food, low calorie snacks, and cholesterol information sheet provided. Diagnostic testing/ SECA scale offered. Discussed the importance of regular SECA scale measurements to ensure healthy weight loss. 06/19/2024: Weight: 174, BMI: 35. Reviewed SECA/goals for implementing sustainable lifestyle changes. Patient is encouraged to increase physical activity, goal 8-10k steps/day. Also discussed the importance of strength training with proper safety/body mechanics for maintenance of muscle mass/bone health. Patient encouraged to drink 60-80oz water/day. Reviewed nutrition, recommending food diary x 1 week to ensure adequate caloric/protein intake. Goal of 80g protien/day. Reviewed risks, benefits, and side effects of weight management medications including phentermine, Topamax, Contrave, metformin, and GLP-1 agonist. Patient interested in GLP-1 agonist Zepbound. Denies personal/family history of medullary thyroid cancer/M EN syndrome. Rx for Zepbound 2.5 mg SC weekly sent to pharmacy. Reviewed expectations for PA process/insurance coverage. After consultation and careful review of medical history, this patient would benefit from Zepbound based off of the following criteria met: Patient is over the age of 18 with a BMI of 35. Additional comorbidities include HTN, HLD. Patient has trialed other methods of weight loss including improving diet and exercise without success. This medication is prescribed by or in consultation with a board-certified obesity and weight management physician (Dr. Yola Odonnell/Dr. David Odonnell). All questions answered to the patients' satisfaction. Patient demonstrates understanding of diagnosis and treatments discussed. Follow-up in 4 weeks, sooner should any questions/concern s arise. Case discussed with collaborating physician Shyla Odonnell who has reviewed the assessment/plan. Chart, medications, labs, and vital signs reviewed. Dictation completed with the use of [employer] voice recognition software, prone to medical misidentification s and grammatical errors. All errors are unintentional. Although the practitioner does try to identify and correct errors, some may be present. Please do not hesitate to contact the practitioner for clarification. Total time was 60 minutes spent with >50% on coordination of care and patient education. 06/19/2024 Can's esophagus with dysplasia (ICD-10 - K22.719) Heather is a 53-year-old female with a PMH of HTN, HLD, hypothyroidism, depression, Can's Esophagus, nightly oxygen requirement (2 L via nasal cannula) that presents for weight management consult. Patient was reassured and welcomed to the practice. Discussed [facility] holistic and medical approach to weight loss with emphasis on lifestyle modification. Patient is educated that a healthy lifestyle aids in combating obesity as well as reducing the risk of developing obesity-related medical complications including but not limited to diabetes and cardiovascular disease. Detailed education provided about taking steps to initiate sustainable lifestyle changes including incorporating regular physical activity, making healthy diet choices, and prioritizing mental health. Information provided about literature including The Food Rules by Sam Goldman and Eat Fat Get Lean by Dr Arnie Bennett. Handouts including lifestyle checklist, protein content of food, low calorie snacks, and cholesterol information sheet provided. Diagnostic testing/ SECA scale offered. Discussed the importance of regular SECA scale measurements to ensure healthy weight loss. 06/19/2024: Weight: 174, BMI: 35. Reviewed SECA/goals for implementing sustainable lifestyle changes. Patient is encouraged to increase physical activity, goal 8-10k steps/day. Also discussed the importance of strength training with proper safety/body mechanics for maintenance of muscle mass/bone health. Patient encouraged to drink 60-80oz water/day. Reviewed nutrition, recommending food diary x 1 week to ensure adequate caloric/protein intake. Goal of 80g protien/day. Reviewed risks, benefits, and side effects of weight management medications including phentermine, Topamax, Contrave, metformin, and GLP-1 agonist. Patient interested in GLP-1 agonist Zepbound. Denies personal/family history of medullary thyroid cancer/M EN syndrome. Rx for Zepbound 2.5 mg SC weekly sent to pharmacy. Reviewed expectations for PA process/insurance coverage. After consultation and careful review of medical history, this patient would benefit from Zepbound based off of the following criteria met: Patient is over the age of 17 with a BMI of 35. Additional comorbidities include HTN, HLD. Patient has trialed other methods of weight loss including improving diet and exercise without success. This medication is prescribed by or in consultation with a board-certified obesity and weight management physician (Dr. Yola Odonnell/Dr. David Odonnell). All questions answered to the patients' satisfaction. Patient demonstrates understanding of diagnosis and treatments discussed. Follow-up in 4 weeks, sooner should any questions/concern s arise. Case discussed with collaborating physician Shyla Odonnell who has reviewed the assessment/plan. Chart, medications, labs, and vital signs reviewed. Dictation completed with the use of [employer] voice recognition software, prone to medical misidentification s and grammatical errors. All errors are unintentional. Although the practitioner does try to identify and correct errors, some may be present. Please do not hesitate to contact the practitioner for clarification. Total time was 60 minutes spent with >50% on coordination of care and patient education. 12/09/2024 Nutritional counseling (ICD-10 - Z71.3) Heather is a 54-year-old female with a PMH of HTN, HLD, hypothyroidism, depression, Can's Esophagus, nightly oxygen requirement (2 L via nasal cannula) that presents for weight management follow-up. Reviewed [facility] holistic and medical approach to weight loss with emphasis on lifestyle modification. 12/09/2024: Weight: 173.9, BMI: 35. Weight is stable. SECA reviewed. Patient encouraged to continue prioritizing protein intake and supplementing with high-protein snacks/drinks. She is encouraged to continue to increase physical activity as tolerated. Discussed importance of adequate hydration. Will continue Contrave -patient can titrate down if she feels that shaking persists/worsens. 11/04/2024: Weight: 173.4, BMI: 35. (+3lb) 07/25/2024: Weight: 170, BMI: 34.3. (-4lb) 06/19/2024: Weight: 174, BMI: 35. All questions answered to the patients' satisfaction. Patient demonstrates understanding of diagnosis and treatments discussed. Follow-up in 4 weeks, sooner should any questions/concern s arise. Case discussed with collaborating physician Shyla Odonnell who has reviewed the assessment/plan. Chart, medications, labs, and vital signs reviewed. Dictation completed with the use of [employer] voice recognition software, prone to medical misidentification s and grammatical errors. All errors are unintentional. Although the practitioner does try to identify and correct errors, some may be present. Please do not hesitate to contact the practitioner for clarification. Total time was 30 minutes spent with >50% on coordination of care and patient education. 06/19/2024 Nutritional counseling (ICD-10 - Z71.3) Heather is a 53-year-old female with a PMH of HTN, HLD, hypothyroidism, depression, Can's Esophagus, nightly oxygen requirement (2 L via nasal cannula) that presents for weight management consult. Patient was reassured and welcomed to the practice. Discussed [facility] holistic and medical approach to weight loss with emphasis on lifestyle modification. Patient is educated that a healthy lifestyle aids in combating obesity as well as reducing the risk of developing obesity-related medical complications including but not limited to diabetes and cardiovascular disease. Detailed education provided about taking steps to initiate sustainable lifestyle changes including incorporating regular physical activity, making healthy diet choices, and prioritizing mental health. Information provided about literature including The Food Rules by Sam Goldman and Eat Fat Get Lean by Dr Arnie Bennett. Handouts including lifestyle checklist, protein content of food, low calorie snacks, and cholesterol information sheet provided. Diagnostic testing/ SECA scale offered. Discussed the importance of regular SECA scale measurements to ensure healthy weight loss. 06/19/2024: Weight: 174, BMI: 35. Reviewed SECA/goals for implementing sustainable lifestyle changes. Patient is encouraged to increase physical activity, goal 8-10k steps/day. Also discussed the importance of strength training with proper safety/body mechanics for maintenance of muscle mass/bone health. Patient encouraged to drink 60-80oz water/day. Reviewed nutrition, recommending food diary x 1 week to ensure adequate caloric/protein intake. Goal of 80g protien/day. Reviewed risks, benefits, and side effects of weight management medications including phentermine, Topamax, Contrave, metformin, and GLP-1 agonist. Patient interested in GLP-1 agonist Zepbound. Denies personal/family history of medullary thyroid cancer/M EN syndrome. Rx for Zepbound 2.5 mg SC weekly sent to pharmacy. Reviewed expectations for PA process/insurance coverage. After consultation and careful review of medical history, this patient would benefit from Zepbound based off of the following criteria met: Patient is over the age of 17 with a BMI of 35. Additional comorbidities include HTN, HLD. Patient has trialed other methods of weight loss including improving diet and exercise without success. This medication is prescribed by or in consultation with a board-certified obesity and weight management physician (Dr. Yola Odonnell/Dr. David Odonnell). All questions answered to the patients' satisfaction. Patient demonstrates understanding of diagnosis and treatments discussed. Follow-up in 4 weeks, sooner should any questions/concern s arise. Case discussed with collaborating physician Shyla Odonnell who has reviewed the assessment/plan. Chart, medications, labs, and vital signs reviewed. Dictation completed with the use of [employer] voice recognition software, prone to medical misidentification s and grammatical errors. All errors are unintentional. Although the practitioner does try to identify and correct errors, some may be present. Please do not hesitate to contact the practitioner for clarification. Total time was 60 minutes spent with >50% on coordination of care and patient education. 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
== END 2025-02-10 12:09 | disposition home or self-care (01) ==
LOC: HO.HSM 11:47
PROVIDERS: PCP Nurse Practitioner; Visit Provider Psychiatry & Neurology Neurology
DX: G31.84 Mild cognitive impairment of uncertain or unknown etiology (principal)
CPT/HCPCS: 99214